=== PATIENT | female | born 1970 | race Caucasian/White ===

== ENCOUNTER 2024-04-27 01:32 | Observation (INO) | payer OTHER, SELFPAY ==
[2024-04-26 23:21] VITALS: BP 155/88
[2024-04-26 23:23] VITALS: BP 155/88
[2024-04-26 23:25] LABS: Glucose - Point of Care 107 mg/dl (70-99)
--- NOTE | 2024-04-26 23:28 | ED.CVA ---
History of Present Illness
General
Chief Complaint: CVA/TIA Symptoms
Source: patient and significant other
Exam Limitations: clinical condition
Time Seen by Provider: 04/26/24 23:21
Nursing documentation reviewed up to this point in time: agreed with
Onset of Stroke Symptoms
Onset of symptoms known: Yes
Date of onset of symptoms: 04/26/24
Time of onset of symptoms: 23:00
History of Present Illness
History of Present Illness:
This a pleasant 54-year-old female that presents with acute confusion approximately 30 minutes prior to arrival. Fianc� states that she has had difficulty with word finding. She has also had an unsteady gait. Patient reports having a severe
headache for the last day and a half. She awakened this morning without headache. She did not have any symptoms at all today. 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
Vital signs are stable. Patient not hypoxic
Nursing note reviewed. I agree with nursing documentation up to this point in time.
Home Meds and allergies reviewed.
NUMBER AND COMPLEXITY OF PROBLEMS ADDRESSED AT THE ENCOUNTER
� Chronic conditions affecting care:
� Acute Exacerbation and/or Progression of Chronic Illness:
� Differential Diagnosis includes:
AMOUNT AND/OR COMPLEXITY OF DATA TO BE REVIEWED AND ANALYZED
I performed an independent evaluation of the following and my interpretation is:
EKG: EKG shows normal sinus rhythm rate 79 with normal intervals, normal axis. No evidence of acute ischemia present. This is a normal EKG. When compared with previous EKG dated December 22, 2018, there is no obvious morphology
change noted.
CT:CT HEAD
Comparison: 12/22/2018.
IMPRESSION:
No acute intracranial hemorrhage, mass effect, or midline shift.
Solorio-white differentiation is intact. If indicated MRI would have increased sensitivity for acute infarct.
Ventricles and sulci are unremarkable.
Results faxed/electronically transmitted to the ER and radiology department at 11:44 PM ET.
X-rays:
Ultrasound:
Laboratory Studies:
Other:
Review of other/old records:
Clinical information was obtained by an independent historian:
Prescriptions/Medications Considered but not given:
Further testing considered but not performed:
RISK OF COMPLICATIONS AND/OR MORBIDITY OR MORTALITY OF PATIENT MANAGEMENT
Social determinants of health affecting care: Good Social Support
Discussion with other providers: Spoke with Dr. Rolando Manzano, neurology who is aware of the CT scan findings.
Escalation of care including admission/observation vs risk of discharge considered:
CRITICAL CARE NOTE:
Critical care statement: A total of 45 minutes of critical care time was provided for this patient. This time is separate from time utilized to perform the aforementioned documented procedures. Aggregate critical care time includes only time
during which I was engaged in work directly related to the patient's care, as described above, whether at the bedside or elsewhere in the Emergency Department.
Total Time (exclusive of procedures):45
Update:
Past History
Past History
ED Past Medical History: HTN, Other (Left ear melanoma removal) and Other (carotid artery dissection)
ED Past Surgical History: Gynecological (tubal ligation) and Other (melanoma L ear removal)
Social History
Tobacco: Non-smoker
Alcohol: None
Drug: None
Personal:
Living: with family
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
Family History
Family History: Other (mother TIA's)
Phy Exam
General Physical Exam
General Presentation: well appearing and no apparent distress
General Skin: warm and dry
General Habitus: normal
General Mental: alert
General Hydration: appears well hydrated
ENT Exam
ENT Exam: EOMI, pharynx normal, neck supple and normocephalic
Eye Exam
Eye Exam: PERRL, cornea clear and conjunctiva normal
Cardiovascular Exam
Cardiovascular Exam: regular rate/rhythm, no edema, no murmur and normal peripheral pulses
Pulmonary Exam
Pulmonary Exam: lungs clear, no respiratory distress, no rales, no crackles, no rhonchi, no stridor, no wheezing and no cough
Gastrointestinal Exam
Gastrointestinal Exam: normal bowel sounds, non tender, soft, no organomegaly, no pulsatile mass and non distended
Neurological Exam
Neurological Exam: alert, oriented x3, no motor deficits and speech normal
Musculoskeletal Exam
Musculoskeletal Exam: full ROM and no edema
Skin Exam
Skin Exam: normal color, warm/dry, no rash and no petechia
Psychiatric Exam
Psychiatric Exam: normal mood/affect
Scores
NIH Stroke Score
Level of Consciousness: 0 - Alert
LOC Questions: 0-Answers both correctly
LOC Commands: 0-Performs both correctly
Best Horizontal Gaze: 0-Normal
Visual Wong: 0=Normal, no visual loss
Facial Palsy: 0=Normal, symmetrical
Motor - Right Arm: 0=No drift 10 seconds
Motor - Left Arm: 0=No drift 10 seconds
Motor - Right Le-No drift 5 seconds
Motor - Left Le-No drift 5 seconds
Limb Ataxia: 0-Absent
Sensation: 0-Normal
Best Language: 0-No aphasia
Dysarthria: 0-Normal
Extinction and Inattention: 0-No abnormality
Total Score:: 0
Thrombolytic Contraindication
Inclusion and Exclusion criteria reviewed: Yes
Course
Orders/Labs/Results
Orders:
Orders
04/26/24 23:21
CT Head W/o Cont STROKE ALERT Urgent
Comment:
Reason For Exam: APhasia, hx of carotid dissection
CT Head/Neck Ang STROKE ALERT Urgent
Comment:
Reason For Exam: Aphasia, hx of carotid dissection
Bedside Glucose- Treatment ONCE
Cardiac Monitoring- Treatment ONCE
04/26/24 23:22
Electrocardiogram (*1) Stat
Reason for Study: Other
Other Reason for Exam: neuro symptoms
EKG- Treatment ONCE
04/26/24 23:23
Urinalysis Reflex To Culture Urgent
Date Specimen was Collected: 04/27/24
Time Specimen was Collected: 00:43
Urine Drug Abuse Screen Urgent
Date Specimen was Collected: 04/27/24
Time Specimen was Collected: 00:44
Test Result ONCE
04/26/24 23:49
Acetaminophen Urgent
Alcohol Urgent
Comprehensive Metabolic Panel Urgent
HCG, Serum Qualitative Screen Urgent
PTT Urgent
Prothrombin Time Urgent
Salicylate Urgent
04/26/24 23:50
Complete Blood Count/With Diff Urgent
Erythrocyte Sed Rate Urgent
04/26/24 23:54
Troponin I Urgent
04/27/24 00:36
Aspirin 325 mg PO NOW STA
Abnormal Lab Results
04/26/24 04/26/24 04/26/24
23:23 23:49 23:50
Absolute Lymphs (auto) 3.7 H 10^3/uL
(1.2-3.4)
Carbon Dioxide 31 H mmol/L
(22-30)
Salicylates < 1.0 L mg/dl
(2.0-20.0)
Acetaminophen < 10 L ug/ml
(10-30)
POC Glucose 107 H mg/dl
(70-99)
04/26/24 23:50
04/26/24 23:49
Vital Signs
Initial and Last Documented VS:
Initial Vital Signs
Temp Pulse Resp BP Pulse Ox
97.7 F 79 14 155/88 99
04/26/24 23:21 04/26/24 23:21 04/26/24 23:21 04/26/24 23:21 04/26/24 23:21
Last Documented Vital Signs
Temp Pulse Resp BP Pulse Ox
97.7 F 79 16 168/105 95
04/26/24 23:21 04/27/24 00:15 04/27/24 00:15 04/27/24 00:00 04/27/24 00:15
*Pulse Oximetry
Patient hypoxic: no
*Critical Care Note
Total Time (30-74mins, 75-104mins- exclusive of procedures): 45 (45)
Patient Management
Social determinants of health affecting care: Strong social support
Discussion with other providers: Taker Off Hemp Fiber and Radiologist (Spoke with Dr. Alex Anderson, radiology to determine CT scan of the head is negative.)
Update Note
Update Note:
04/26/2024 2346 PM: CT scan negative
ED Attending Note
-
Portions of this chart may have been created with voice recognition software.� Occasional wrong word or��sound alike� substitutions may have occurred due to the inherent limitations of voice recognition software.
Discharge Plan
Departure
Patient Disposition: Admit
Date of Disposition: 04/27/24
Time of Disposition: 00:59
Admit to: Telemetry
Presentation/result/management discussed w/ accepting MD/DO: Hospitalist
Discharge Problem:
Headache, Expressive aphasia
Prescriptions:
No Action
duloxetine 60 MG capsule,delayed release(DR/EC)
60 mg PO HS
Mounjaro 2.5 mg/0.5 mL pen injector
2.5 mg SC MO
cyanocobalamin (vitamin B-12) 1,000 mcg Tablet
1,000 mcg PO DAILYPRN PRN (Reason: supplement)
cholecalciferol (vitamin D3) 25 mcg (1,000 unit) Tablet
25 mcg PO DAILYPRN PRN (Reason: supplement)
Visbiome 112.5 billion cell Capsule
1 cap PO DAILY
Referrals:
Rema Santos PA [Family Provider] -
Interventions
Interventions:
*Risk Screen - Suicide Last Done: 04/26/24 23:45
*General Assessment Last Done: 04/26/24 23:45
*Neglect/Abuse Screening Last Done: 04/26/24 23:45
ED- Fall Risk Assessment Last Done: 04/26/24 23:46
*ED COVID-19 Vaccine History Last Done: 04/26/24 23:45
ED- Pulmonary Assessment Last Done: 04/26/24 23:46
ED- Neurological Assessment Last Done: 04/27/24 00:17
ED- Cardiac Assessment Last Done: 04/26/24 23:46
ED Swallowing Screen Last Done: 04/27/24 00:37
Discharge Date and Time
Print Language: MALAYSIAN
[2024-04-26 23:43] VITALS: BMI 28.4
[2024-04-27] VITALS (10 sets, daily range): BP systolic 109–168; BP diastolic 72–105; PULSE 74–85; O2SAT 98–99; BMI 27.3
[2024-04-27 00:03] LABS: % Basophils 1.3 % (0-2); % Eosinophils 2.3 % (0-6); % Immature Granulocytes 0.2 % (0-0.5); % Lymphocytes 43.5 % (20.5-51.1); % Monocytes 6.6 % (1.7-9.3); % Neutrophils 46.1 % (42.2-75.2); Absolute Basophils 0.1 10^3/uL (0-0.2); Absolute Eosinophils 0.2 10^3/uL (0-0.7); Absolute Lymphocytes 3.7 10^3/uL (1.2-3.4); Absolute Monocytes 0.6 10^3/uL (0.1-0.6); Hematocrit 42.5 % (37.0-47.0); Hemoglobin 14.8 g/dL (12.0-16.0); Mean Corp Hgb Conc. 34.8 g/dL (33.0-37.0); Mean Corpuscular Hgb 29.1 pg (27.0-31.0); Mean Corpuscular Volume 83.5 fL (81.0-99.0); Mean Platelet Volume 9.9 fL (7.4-10.4); Nucleated Red Blood Cells % 0 %; Platelet Count 288 10^3/uL (130-400); Red Blood Cell Count 5.09 10^6/uL (4.20-5.40); Red Cell Dist. Width 12.8 % (11.5-14.5); White Blood Cell Count 8.6 10^3/uL (4.8-10.8)
[2024-04-27 00:11] LABS: HCG, Serum Qualitative Screen Negative
[2024-04-27 00:14] LABS: ALT (SGPT) 23 U/L (0-35); AST (SGOT) 29 U/L (14-36); Acetaminophen < 10 ug/ml (10-30); Albumin 4.7 g/dl (3.5-5.0); Alkaline Phosphatase 82 U/L (38-126); Blood Urea Nitrogen 12 mg/dl (7-17); Carbon Dioxide 31 mmol/L (22-30); Chloride 100 mmol/L (98-107); Estimated Creatinine Clearance 79 ml/min; Glucose 96 mg/dl (70-99); Potassium 3.5 mmol/L (3.5-5.1); Salicylate < 1.0 mg/dl (2.0-20.0); Sodium 138 mmol/L (135-145); Total Bilirubin 0.4 mg/dl (0.2-1.3); Total Protein 7.3 g/dl (6.3-8.2); eGFR > 60.00
[2024-04-27 00:15] LABS: Alcohol None Detected
[2024-04-27 00:21] LABS: Erythrocyte Sed Rate 13 mm/hour (0-20)
[2024-04-27 00:27] LABS: Troponin I < 0.012 ng/ml
--- NOTE | 2024-04-27 00:38 | HPS.HSE ---
Family Physician
-
Family Physician: Rema Santos
Chief Complaint
-
word finding difficulty
History of Present Illness
Ms. Liliana Younger is a 54 yo woman wtih hx DM, depression, left ICA dissection, who presents to the ER with word finding difficulty.
Patient states 2 days ago she woke up with diffuse headache which is unusual for her. She drank caffeine and stayed hydrated, headache persisted. This morning headache was no longer present but she felt off all day with word finding difficulty.
She went to see her fiance and had acute confusion, unsure of how long she had been with him. She also had unsteady gait and was taken to the ER.
Currently patient states she feels back to her normal self. Denies current headache. She had no vision changes with symptoms, no focal weakness of arms or legs.
No recent fevers/chills. She had chest pain a few days ago and saw PCP, may have been from heavy lifting (recently moved). No nausea/vomiting/diarrhea. No abdominal pain. No LE swelling.
She has hx ICA dissection years ago and was on aspirin with follow up ultrasounds, no longer on daily aspirin.
Has hx HTN but lost weight and was able to come off of her medications. Last BP check in clinic was normal per patient.
Medical History
Past Medical History
Past Medical History: Reports Other ( DM, depression, left ICA dissection)
Past Surgical History: Reports Other
Social History
Tobacco: Non-smoker
Alcohol: None
Family History
Family History: Not pertinent
Allergies / Home Medications
Allergies reflects when Allergies were last updated in [facility].
Home Medications with original date entered in [facility]
Allergy/Medication List:
Allergies
Allergy/AdvReac Type Severity Reaction Status Date / Time
adhesive Allergy bandaids-red,puffy Verified 04/26/24 23:26
rash
dextromethorphan HBr Allergy puffy Verified 04/26/24 23:26
[From NyQuil] joints
with rash
doxylamine [From NyQuil] Allergy puffy Verified 04/26/24 23:26
joints
with rash
Fish Containing Products Allergy SALMON-ITCH Verified 04/26/24 23:26
ING,HIVES,N
AUSEA
pseudoephedrine HCl Allergy puffy Verified 04/26/24 23:26
[From NyQuil] joints
with rash
Home Medications
duloxetine 60 mg capsule,delayed release 60 mg PO HS 01/24/17
Lactobac no.2-Bifidobac no.1-S. thermo 112.5 billion cell capsule (Visbiome) 1 cap PO DAILY 04/26/24
cholecalciferol (vitamin D3) 25 mcg (1,000 unit) tablet 25 mcg PO DAILYPRN PRN supplement 04/26/24
cyanocobalamin (vitamin B-12) 1,000 mcg tablet 1,000 mcg PO DAILYPRN PRN supplement 04/26/24
tirzepatide 2.5 mg/0.5 mL subcutaneous pen injector (Mounjaro) 2.5 mg SC MO 04/26/24
Review of Systems
-
History Source: Patient
A 12 point ROS was completed and negative except as noted: Yes
Physical Exam
Vital Signs
Vital Signs
Temp Pulse Resp BP Pulse Ox
97.7 F 79 16 168/105 95
04/26/24 23:21 04/27/24 00:15 04/27/24 00:15 04/27/24 00:00 04/27/24 00:15
Physical Exam
General: No Apparent Distress
HEENT: PERRLA
Respiratory: Clear; No Wheezes
Cardiac: S1/S2 and Regular Rhythm
GI: Soft and Non Tender
Musculoskeletal: No Edema
Skin: Warm and Dry; No Rash
Neuro: AO x 3 and Other (PENNY, EOMI, no facial asymmetry, shoulder shrug WNL, no pronator drift, speech clear, 5/5 strength upper and lower extremities )
Psych: Calm
Laboratory Results
-
04/26/24 23:50
04/26/24 23:49
Laboratory Results
Total Bilirubin 0.4 mg/dl (0.2-1.3) 04/26/24 23:49
AST 29 U/L (14-36) 04/26/24 23:49
ALT 23 U/L (0-35) 04/26/24 23:49
Alkaline Phosphatase 82 U/L (38-126) 04/26/24 23:49
Troponin I < 0.012 ng/ml 04/26/24 23:54
Data Reviewed
-
Diagnostic Radiology: Report Reviewed by me
Lab Data: Labs Reviewed by me
Impression/Plan
-
Ms. Liliana Younger is a 54 yo woman with hx DM, depression, left ICA dissection, who presents to the ER with word finding difficulty.
Triage VS: T 97.7, P 79, RR 14, BP 155/88, SpO2 99%
LABS: WBC 8.6, Hg 14.8, PLT 288, Na 138, K+ 3.5, CO2 31, Cr 0.8, liver enzymes WNL, Trop < 0.012, HCG negative
CT Head without acute event; CTA Head/Neck without high grade stenosis, occlusion, dissection, aneurysm
MAR: asa 325
Expressive Aphasia
-symptoms now resolved. TIA versus complex migraine given association with SANCHEZ
-admit to observation
-s/p asa 325 in ER, continue asa 81mg PO QD
-start statin
-neuro checks
-MRI in AM
-formal neurology consult
-HgA1c, lipid panel
DM
-on Mounjaro at home
-ISS
DVT PPx SCD
FULL CODE
[2024-04-27] MEDS: ASPIRIN 325 MG PO (00:41)
[2024-04-27 00:52] LABS: APTT 30.6 Sec (23.4-35.0); INR 0.99; PT 13.1 Sec (11.4-14.6)
[2024-04-27 00:59] LABS: Urine Albumin Negative (Neg - Trace); Urine Bilirubin Negative (Negative); Urine Character Clear (Clear); Urine Color Yellow; Urine Glucose Negative (Negative); Urine Ketone Negative (Negative); Urine Leukocyte Negative (Negative); Urine Nitrite Negative (Negative); Urine Occult Blood Negative (Negative); Urine Specific Gravity 1.005 (<1.030); Urine Urobilinogen Negative (Neg - 1+)
[2024-04-27 01:15] LABS: Amphetamines Negative (Negative); Barbiturates Negative (Negative); Benzodiazepines Negative (Negative); Buprenorphine Negative (Negative); Cocaine Negative (Negative); Marijuana Negative (Negative); Methadone Negative (Negative); Methamphetamines Negative (Negative); Opiates Negative (Negative); Phencyclidine Negative (Negative); Tricyclic Antidepressants Negative (Negative)
--- NOTE | 2024-04-27 07:48 | W.PN.HOSP.TC ---
Addendum entered and electronically signed by Graeme Hall MD 04/27/24 14:46:
54 y/o female with word finding difficulty.She has hx ICA dissection years ago and was on aspirin with follow up ultrasounds, no longer on daily aspirin.
CTA-No evidence of large vessel occlusion. Symmetric cortical perfusion within both MCA territories.Mild narrowing of the supraclinoid portion of the right internal carotid artery, stable compared to multiple prior CTA examinations.
CVS: S1-S2 normal
Chest: CTA B/L
Abdomen: Soft, NT / Bowel sounds present
Extremities: No edema, normal pulses
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
#Expressive Aphasia
Symptoms now resolved. Likely migraine
ASA- DC as no CVA
MRI -No MRI evidence for acute infarct or intracranial hemorrhage.
Neuro eval appreciated
Feels this si Migraine
HgA1c pending, lipid panel noted
#Melanoma- History
#DVT PPx SCD
#FULL CODE
D/W Neuro
OK for discharge
Original Note:
Today's Communication/Plan
-
d/c home
use ibuprofen for mild headaches
sumitriptan for headaches with aura
fu with OP neurology.
Assessment / Plan
Assessment / Plan
#Expressive Aphasia
TIA versus complex migraine given association with SANCHEZ
- symptoms now resolved.
- Trops negative
- s/p asa 325 in ER, Stop asa 81 per neuro
- can stop statin per neuro
- Head CT, Head/neck CTA unremarkable
- MRI brain unremarkable
- Pending HbA1c, lipid panel
- UA, UDS unremarkable
- Neuro recs to trial ibu for SANCHEZ and 50mg sumatriptan prn for aura symptoms.
- advised to keep a log of headaches
- fu with neuro at least annually
#DM
- on Mounjaro at home
- ISS
# Left ICA
- periodic USG Q3m
- not on any OAC
DVT PPx SCD
FULL CODE
Anticipated Discharge: Today
Subjective/Interval History
-
Date of Service: April 27, 2024
Objective Data
-
Labs:
Laboratory Results
04/26/24 04/26/24
23:49 23:50
WBC 8.6
Hgb 14.8
Hct 42.5
Plt Count 288
PT 13.1
INR 0.99
APTT 30.6
Sodium 138
Potassium 3.5
Chloride 100
Carbon Dioxide 31 H
BUN 12
Creatinine 0.8
Glucose 96
Calcium 10.0
Total Bilirubin 0.4
AST 29
ALT 23
Alkaline Phosphatase 82
Vital Signs:
Vital Signs
Temp Pulse Resp BP Pulse Ox
98.2 F 86 16 150/90 97
04/27/24 06:46 04/27/24 06:46 04/27/24 06:46 04/27/24 06:46 04/27/24 06:46
Review of Systems
-
History Source: Patient
Constitutional: Denies Fever
Respiratory: Denies Cough
Cardiac: Denies Chest Pain
Abdomen/GI: Denies Abdominal Pain
Musculoskeletal: Denies Joint Pain
Neuro: Denies Headache
Physical Exam
-
General: Well Developed and Well Nourished
HEENT: Normocephalic and Atraumatic
Respiratory: Clear to Auscultation
Cardiac: Regular Rhythm
GI: Soft and Nontender
Musculoskeletal: No Edema
Skin: Warm and Dry
Neuro: Awake, Alert, Oriented, AO x 3, No Motor Deficits, Nonfocal/Grossly Intact and Central Nerve's Intact
Psych: Calm
Data Reviewed
-
CT Scan: Report Reviewed by me, Discussed with Physician and Discussed with Patient
MRI: Report Reviewed by me and Discussed with Physician
Labs: Labs Reviewed by me, Discussed with Physician and Discussed with Patient
[2024-04-27 08:02] LABS: Glucose - Point of Care 92 mg/dl (70-99)
--- NOTE | 2024-04-27 08:11 | CON.NEURO4 ---
Addendum entered and electronically signed by Jared Manzano MD 04/27/24 13:11:
I saw and evaluated the patient and reviewed note by NEWS PRODUCER Jackie Chiu, agree with findings with following comments:
54 year old right handed woman with visual aura migraine without headache, possible left intracranial carotid dissection in 2017, hypertension presenting to hospital due to confusion and word finding difficulty, the previous day had had significant
headache. Only recent stressor is a move recently, otherwise no sick contacts, fevers, URI, head/neck trauma. Tuesday woke up with a significant headache, toughed it out and drank a lot of water, may have had a mild headache on Tuesday.
Tuesday headache had no significant nausea/vomiting, photophobia or phonophobia. Did have some very mild speech abnormalities intermittently throughout the day on Tuesday but were so mild as to not be worrisome. evening headache
somewhat improved but her partner noted abnormal speech, pauses and poor responsiveness, he asked her if they should go to hospital and they presented to ED. Patient feeling well now with no headache, confusion or speech abnormalities.
Since around her teenager years she have had ocular/retinal migraines (these are incidences of visual aura without headache) where she will have usually right sided visual hemifield loss lasting around 10-20 minutes spontaneously resolving. Her
sister has rather severe migraines. Patient only once in her life had had a severe headache with photophobia making her need to lay day with complete inactivity.
Neurologic examination normal:
CTA head and neck no significant abnormalities, noted mild narrowing of left supraclinoid intracranial artery with no findings of dissection, no carotid stenosis or dissection.
MRI brain without contrast is normal.
Assessment: Presumed migraine aura manifesting with speech symptoms and mild confusion. Has a history of migraine visual aura without headache which is a clue, and patient had significant headache Tuesday is additional clue. Time course is not
consistent with TIA given mild fluctuating symptoms of speech abnormality on Tuesday. Time course also not consistent with seizure.
I have some doubts on whether or not she had a truly pathologic dissection of the left intracranial carotid artery causing symptoms, as that episode may again have been a migraine aura with motor/sensory symptoms and she simply may have an anatomic
variant of left carotid artery with some narrowing in that region. It seems that most of her migraine auras localize to the left side of the brain (left hemifield vision issue, aphasia/speech difficulties)
Recommendations:
-Can stop aspirin and atorvastatin
-If she gets significant headache like on Tuesday again I recommended she take 600 mg Ibuprofen and some caffeine as soon as possible, and if still with headache take 50 mg Sumatriptan which may help to prevent the aura symptoms. Not seeing
indication for everyday preventive medication. Also discussed may be helpful for keeping track of headaches and symptoms of aura with journal or migraine kvng on the phone
-No barriers to discharge from my POV
-Would have her continue to follow with neurology once a year seems sufficient given she has had these instances of neurologic issues over the years
Original Note:
Documented by User: Jackie Chiu NP 04/27/24 12:58
Consultation - Neurology 4
-
CONSULTING PHYSICIAN: Orquidea Manzano MD
REFERRING PHYSICIAN: Hospitalists/Dr. Bower
DICTATED BY: JEANA Gray
DATE/TIME OF REQUEST: 04/26/24
DATE/TIME OF CONSULTATION: 04/27/24
Reason for Consultation: Confusion
History of Present Illness:
This is a 54-year-old right-handed female with a PMH of stroke-like symptoms and possible dissection of the supraclinoid portion of the left internal carotid artery, ocular migraines, HTN, HLD, and melanoma who has presented to the hospital on
04/26/24 with report of headache, word finding difficulty, tongue numbness, and confusion. Patient has been previously evaluated by our Neurology service for headache and stroke-like symptoms once in 2017 and again in 2019.
From previous evaluation by Dr. Hugo on 01/24/17:
'The patient is a 46-year-old right-handed woman
who presented to this hospital's emergency department with new sudden onset of
the above-mentioned symptoms which began two days ago. The patient's
information was obtained after review of the patient's medical record,
discussion with the patient and with the emergency department providers.
The patient had been in her usual state of health until two days ago at which
time she was shopping. The patient reports that she was not having any change
in medical status in the past few days or surrounding this time. She did not
feel that she was under significant strain. She suddenly had onset, however,
of right arm and nearly simultaneously right leg heaviness. She also felt that
there was a tingling sensation in her tongue, although she is not able to
differentiate which side was involved. There was no other facial association.
The patient did report that she had difficulty with speech at that time. She
also felt that she was dragging her right arm and her right leg. After sitting
for approximately five minutes and eating chocolate, the patient did have a
significant sense of improvement in her well being and was able to stand again
and function without obvious difficulty. Unfortunately, the patient did not
seek medical attention for this event which lasted for approximately 20
minutes. The problem was followed immediately by a mild headache which
resolved after approximately 12 hours. The patient had no head pain yesterday,
although she again had recurrence of her head pain today which is at the top
of her head. The patient rarely experiences headaches and those headaches are
usually in the back of the head. This mild headache is described as a dull
sensation.'
She was followed as an outpatient by Dr. Hugo for about one year following her possible L ICA dissection and was maintained on aspirin 81mg and a statin for one year following that event. ASA/statin therapy was discontinued one year later when
repeat imaging was stable. Two days ago on 04/25/24 she reports waking up in the morning with an 8/10 headache that she describes as an entire head squeezing sensation that radiated down her neck. Her headache was not relieved by caffeine or
hydration, she did not taking anything else for the discomfort. She denies any photo/phonophobia and nausea. Throughout the day she reports feeling slightly unsteady on her feet and having mild word finding difficulty. She woke up yesterday
(04/26/24) and the headache had resolved. However, she reports having difficulty word finding/finishing her sentences. Last night around 2100 she was relaxing in bed when she suddenly became completely disoriented to time and situation. Her entire
tongue then started to feel numb and she felt like she could only speak at a low volume compared to baseline. 20 minutes later en route to the ER, her tongue numbness resolved. Her disorientation lasted slightly less than [address] head and CTA
head/neck were obtained on arrival in the ER and are negative for any acute abnormalities. NIHSS was 0. She was not a candidate for TNK/IAT due to NIHSS 0, unclear diagnosis. Today (04/27/24), patient reports feeling completely at her baseline. She
denies any headache, dizziness, vision changes, speech/swallow difficulty, nausea, numbness, weakness, chest pain, palpitations, and shortness of breath. She feels like this event was somewhat similar to 2017's ICA dissection symptoms.
Coincidentally, prior to 2017's event and yesterday's event, she had just gotten her hair done at a salon and had her neck hyperextended for some time. She has been intolerant to rosuvastatin and atorvastatin in the past due to muscle cramps.
She reports a history of ocular migraines starting at age 15, she has had about 12 in her lifetime. Her ocular migraines are associated with bilateral eye right visual field wavy distortion and a fuzzy/pressure sensation on the top of her head.
These typically resolve in less than 15 minutes but she has to rest completely to have it pass. She does not one severe headache in the past associated with photo/phonophobia and nausea.
Past Medical History: Stroke-like symptoms and possible dissection of the supraclinoid portion of the left internal carotid artery, HTN, HLD, ocular migraines, osteoarthritis, depression, anxiety, melanoma, positive ANDREW
Surgical History: Tubal ligation, DAVID/BSO, Left ear resection for malignant melanoma
Family History: Sister- migraines and seizures.
Social History: Denies tobacco and illicit drug use. Rare alcohol.
Allergies: [place], NyQuil, adhesive.
Home Medications: See below.
Review of Symptoms:
Patient denies any fever, headache, chest pain, shortness of breath, GI or symptoms.
�Per the HPI.�All systems are reviewed negative except above.
Physical Exam:
The patient is afebrile, abdomen is nondistended, breathing is unlabored, skin is warm and dry, no edema.
NIH Stroke Scale:
I performed the NIH stroke scale on the patient on 04/27/24 at 0830. The patient scored 0 points on the NIH stroke scale assessment, which were assigned as follows: See below.
Neurologic Examination:
The patient is awake, alert and oriented x 3. She is able to follow commands and answer questions appropriately. There is no aphasia or dysarthria. On cranial nerve assessment, pupils are 3 mm bilateral, round and reactive to light and
accommodation. Visual wong are full but patient reports blurring in bilateral LLQ. Extraocular movements are intact. Facial sensations are intact and bilaterally symmetrical, there is no facial asymmetry. Hearing is intact bilaterally to normal
conversation volume. Tongue palate and uvula are midline. Sternocleidomastoid strengths are full bilaterally. Motor strengths are 5/5 bilateral upper and lower extremities on medical research [place] scale. There is no drift or involuntary movement
noted. Deep tendon reflexes are 2+ bilateral upper and lower extremities and Babinski is absent bilaterally. There was no extinction noted on double simultaneous stimulation. Coordination is intact by finger to nose bilaterally.
Lab Results: See below.
Neuro Imaging:
1. CT Head 04/26/24: No intracranial hemorrhage. No transcortical infarct is appreciated. No significant change compared to prior study.
2. CTA head/neck 04/26/24: No evidence of large vessel occlusion. Symmetric cortical perfusion within both MCA territories. Mild narrowing of the supraclinoid portion of the right internal carotid artery, stable compared to multiple prior CTA
examinations.
Differentials for the patient's presentation include:
1. Migraine with aura likely producing headache, confusion, tongue numbness, and speech difficulty.
2. Low concern for stroke but possible.
3. Duration of symptoms too long to be supportive of TIA or seizure.
4. CTA negative for dissection.
IV Tenecteplase/IAT candidacy: She was not a candidate for TNK/IAT due to NIHSS 0, unclear diagnosis.
Recommendations:
-MRI brain noncontrast pending.
-Goal normotension.
-TTE pending.
-NIHSS and neurological checks per unit guidelines.
-If MRI brain is negative, will discontinue aspirin and statin therapy.
-PT/OT/ST evaluations.
-DVT prophylaxis.
-Will follow pending results.
-Patient should follow-up with Neurology as an outpatient at least yearly, may see the NEWS PRODUCER or one of the physicians.
Discussed patient care with: Dr. Manzano, the patient
Vital Signs and Labs
-
Vital Signs and Labs:
Vital Signs
Temp Pulse Resp BP Pulse Ox
98.2 F 72 16 127/83 100
04/27/24 08:19 04/27/24 08:19 04/27/24 08:19 04/27/24 08:19 04/27/24 08:19
Lab Results
04/26/24 23:50
04/26/24 23:49
PT 13.1 Sec (11.4-14.6) 04/26/24 23:49
INR 0.99 04/26/24 23:49
APTT 30.6 Sec (23.4-35.0) 04/26/24 23:49
Sodium 138 mmol/L (135-145) 04/26/24 23:49
Potassium 3.5 mmol/L (3.5-5.1) 04/26/24 23:49
BUN 12 mg/dl (7-17) 04/26/24 23:49
Glucose 96 mg/dl (70-99) 04/26/24 23:49
Calcium 10.0 mg/dl (8.4-10.2) 04/26/24 23:49
LDL Cholesterol, Calc 142 mg/dl 04/27/24 10:00
Vitamin B12 461 pg/ml (821-461) 04/27/24 10:00
Ur Buprenorphine Negative (Negative) 04/27/24 00:48
Medications
-
Active Medications
Generic Name Dose Route Start Last Admin
Trade Name Freq PRN Reason Stop Dose Admin
Acetaminophen 650 mg 04/27/24 02:28
Acetaminophen 650 Mg Rectal Suppository RECTAL 05/25/24 02:27
Q4HPRN PRN
SANCHEZ, mild pain, or temp >100.4F
Acetaminophen 650 mg 04/27/24 02:28
Acetaminophen 325 Mg Tablet PO 05/25/24 02:27
Q4HPRN PRN
SANCHEZ, mild pain, or temp >100.4F
Aspirin 81 mg 04/27/24 08:00 04/27/24 08:16
Aspirin 81 Mg Chewable Tablet PO 05/25/24 07:59 Not Given
DAILY JOSSELYN
Atorvastatin Calcium 40 mg 04/27/24 18:00
Atorvastatin (Lipitor) 40 Mg Tablet PO 05/25/24 17:59
QPM JOSSELYN
Dextrose 12.5 grams 04/27/24 02:28
Dextrose 50% (0.5 Grams/Ml) 50 Ml Syringe IV 05/25/24 02:27
[id number] PRN
hypoglycemia
Protocol
Duloxetine HCl 60 mg 04/27/24 22:00
Duloxetine Delayed Release 60 Mg Capsule PO 05/25/24 21:59
HS JOSSELYN
Glucagon 1 mg 04/27/24 02:28
Glucagon 1 Mg Vial IM 05/25/24 02:27
PRN PRN
hypoglycemia
Protocol
Insulin Aspart 0 units 04/27/24 07:30 04/27/24 12:20
Insulin Aspart Low Resistance 300 Units/3 Ml Pen.Injctr SC 05/25/24 07:29 Not Given
AC JOSSELYN
Protocol
Sodium Chloride 0 flush 04/27/24 02:00
Sodium Chloride 0.9% (Flush) Syringe IV 05/25/24 01:59
PER PROTOCOL JOSSELYN
Home Medications
�Medication �Instructions �Recorded
duloxetine 60 mg capsule,delayed 60 mg PO HS 01/24/17
release
Lactobac no.2-Bifidobac no.1-S. 1 cap PO DAILY 04/26/24
thermo 112.5 billion cell capsule
(Visbiome)
cholecalciferol (vitamin D3) 25 25 mcg PO DAILYPRN PRN supplement 04/26/24
mcg (1,000 unit) tablet
cyanocobalamin (vitamin B-12) 1,000 mcg PO DAILYPRN PRN 04/26/24
1,000 mcg tablet supplement
tirzepatide 2.5 mg/0.5 mL 2.5 mg SC MO 04/26/24
subcutaneous pen injector
(Mounjaro)
NIH Stroke Score
Subsequent NIH Scale
Date of Subsequent NIH Scale: 04/27/24
Time of Subsequent NIH Scale: 08:30
NIH Stroke Score
Level of Consciousness: 0 - Alert
LOC Questions: 0-Answers both correctly
LOC Commands: 0-Performs both correctly
Best Horizontal Gaze: 0-Normal
Visual Wong: 0=Normal, no visual loss
Facial Palsy: 0=Normal, symmetrical
Motor - Right Arm: 0=No drift 10 seconds
Motor - Left Arm: 0=No drift 10 seconds
Motor - Right Le-No drift 5 seconds
Motor - Left Le-No drift 5 seconds
Limb Ataxia: 0-Absent
Sensation: 0-Normal
Best Language: 0-No aphasia
Dysarthria: 0-Normal
Extinction and Inattention: 0-No abnormality
Total Score:: 0
Modified José Miguel (mRS) Score
Modified José Miguel Scale (mRS): No symptoms
Score: 0

Documented by User: Jared Manzano MD 04/27/24 13:02
NIH Stroke Score
NIH Stroke Score
Total Score:: 0
Modified José Miguel (mRS) Score
Score: 0
--- NOTE | 2024-04-27 10:44 | PTOTSP ---
PATIENT MOBILIZING INDEPENDENTLY ON LEVEL SURFACES WELL ELEVATIONS. PATIENT REPORTING THAT SHE FEELS '100%' BACK TO HER BASELINE. IN LIGHT OF THE ABOVE, WILL DISCHARGE FROM ACUTE CARE SKILLED P.T. AT THIS TIME. IF ANY CHANGES SHOULD OCCUR
PLEASE FEEL FREE TO RECONSULT.
[2024-04-27 11:41] LABS: TSH Reflex To Free T4 1.34 uIU/ml (0.47-4.68)
[2024-04-27 11:45] LABS: Ferritin 28.5 ng/ml (11.1-264.0)
[2024-04-27 12:10] LABS: HDL Cholesterol 74 mg/dl; Triglyceride 106 mg/dl (10-149); Very Low Density Lipoprotein 21 mg/dl (0-30)
[2024-04-27 12:12] LABS: Glucose - Point of Care 77 mg/dl (70-99)
[2024-04-27 12:16] LABS: Folate 6.5 ng/ml (2.76-20); Vitamin B12 461 pg/ml (239-931)
[2024-04-27 12:19] LABS: LDL Cholesterol, Calculated 142 mg/dl; Total Cholesterol 237 mg/dl (50-199)
--- NOTE | 2024-04-27 12:44 | CM ---
Liliana came to ED due to word finding difficulties which were noticed by her fiance.
CM met with Liliana to complete IA. 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
She lives in a first floor condo; adult daughter lives there as well.
PT and OT consults reviewed; ST pending.
Anticipate discharge to home with no needs.
CM to follow for discharge planning based on hospital course.
--- NOTE | 2024-04-27 14:18 | W.DCSUMMARY ---
Discharge Summary
Discharge Data
Date of Admission: 04/26/24
Date of Discharge: 04/27/24
-
Pending Results: Yes
Additional Pending Results:
HbA1c
Hospital Course
Discharging Physician : Kamar Bowen MD ; Graeme Hall MD
Disposition : Home
Primary care physician : Rema Santos
Principal Discharge diagnosis : Expressive aphasia
Chronic Discharge diagnosis : Migraine, DM, Depression, left ICA dissection
Hospital Course : 54-year-old female presented with acute confusion/difficulty finding words for 30 minutes prior to arrival. She reported unsteady gait and headache for the last 2 days. She was evaluated for CVA, however her NIH score was 0. CT
head, head/neck CTA were obtained and the findings were unremarkable. Her symptoms resolved quickly. She was admitted for further evaluation. Brain MRI showed was unremarkable. Neurology was on board, initially she was started on aspirin and
atorvastatin but eventually after the further workup it was discontinued. She was advised to use ibuprofen 600mg and some caffeine as soon as she experience severe headache and if still with headache take 50 mg Sumatriptan which may help to prevent
the aura symptoms. Discharged with instructions to Follow with neurology once a year seems sufficient given she has had these instances of neurologic issues over the years. Neuro exam was intact throughout her stay at the hospital.
Important imaging findings : Head CT:
FINDINGS:
No intra or extra axial hemorrhage is appreciated. No midline shift, edema, or abnormal mass effect.
The ventricles and sulci are of normal caliber.
Wolff and white matter are of normal attenuation.
No areas of transcortical infarction are appreciated.
No displaced skull fracture is seen.
The mastoid air cells and visualized paranasal sinuses are normally aerated.
IMPRESSION:
1. No intracranial hemorrhage.
2. No transcortical infarct is appreciated.
3. No significant change compared to prior study.
Head/neck CTA:
FINDINGS:
The visualized aortic arch is of normal caliber. Aortic arch branches are also of normal caliber.
The right common carotid artery is of normal caliber. There is tortuosity of the distal cervical portion of the right internal carotid artery. Mild narrowing of the supraclinoid portion of the right internal carotid artery. No arterial occlusion is
appreciated.
The right middle cerebral artery is within normal limits. There is symmetric cortical perfusion within the MCA territory.
The left common carotid artery is of normal caliber. The left internal carotid artery is also of normal caliber, without evidence of significant carotid stenosis, or carotid dissection. Distal cervical left internal carotid is tortuous.
The left middle cerebral artery is within normal limits. There is symmetric cortical perfusion within the MCA territory.
Both vertebral arteries are of normal caliber. No evidence of vertebral arterial dissection.
The basilar artery is of normal caliber. Both posterior cerebral arteries are of normal caliber.
The thyroid gland is of normal appearance. No pathologic lymphadenopathy is seen within the neck. No large soft tissue masses are appreciated.
Visualized salivary glands are within normal limits.
No focal aggressive osseous lesions are seen.
The visualized lung apices are normally aerated.
IMPRESSION:
1. No evidence of large vessel occlusion. Symmetric cortical perfusion within both MCA territories.
2. Mild narrowing of the supraclinoid portion of the right internal carotid artery, stable compared to multiple prior CTA examinations
Brain MRI:
FINDINGS:
There is no MRI evidence for restricted diffusion to suggest acute infarction. There is no evidence for subacute or chronic infarct. There is no vasogenic or cytotoxic edema. There is no focal encephalomalacia. There is no MRI evidence for white
matter disease in the brain. 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
The ventricles are midline without evidence for hydrocephalus. There is no midline shift or herniation. There is no evidence for acute or chronic intracranial hemorrhage. There are no extra-axial fluid collections. There is mild symmetric bilateral
frontal lobe volume loss.
The orbits appear normal. There is moderate mucosal thickening in the right inferior nasal turbinates. There is minimal mucosal thickening in the inferior left maxillary sinus antrum. There is a small amount of fluid in the left mastoid air cells.
The right mastoid air cells are clear.
There is moderate left-sided facet joint arthrosis at C3/C4 and moderate right-sided facet joint arthrosis at C4/C5.
IMPRESSION:
1. No MRI evidence for acute infarct or intracranial hemorrhage.
2. Mild bilateral frontal lobe volume loss.
Discharge Plan
-
Patient Disposition: Home (Routine Discharge)
Discharge Diagnosis/Procedures: Expressive Aphasia, migraine, DM, Depression, Chronic left ICA dissection
Condition: Good
Diet: No restrictions
Activity: No restrictions
Driving Restrictions: As prior to admission
Bathing Restrictions: None
Activity Restrictions/Additional Instructions:
keeping track of headaches and symptoms of aura with journal or migraine kvng on the phone. Result of HbA1C Pending, see PCP for results.
Referrals:
Jared Manzano MD [Active] - (Annually)
Rema Santos PA [Family Provider] - in less than 1 week
Additional Discharge Medication Instructions: For headaches take 600 mg Ibuprofen and some caffeine as soon as possible, and if still with headache take 50 mg Sumatriptan which may help to prevent the aura symptoms.
Prescriptions:
New
sumatriptan succinate [Imitrex] 50 mg tablet
50 mg PO ONCE MDD 2 tablets(100mg) PRN (Reason: migraine headache) Qty: 30 0RF
Rx Instructions:
orally once;
Continued
duloxetine 60 MG capsule,delayed release(DR/EC)
60 mg PO HS
Mounjaro 2.5 mg/0.5 mL pen injector
2.5 mg SC MO
cyanocobalamin (vitamin B-12) 1,000 mcg Tablet
1,000 mcg PO DAILYPRN PRN (Reason: supplement)
cholecalciferol (vitamin D3) 25 mcg (1,000 unit) Tablet
25 mcg PO DAILYPRN PRN (Reason: supplement)
Visbiome 112.5 billion cell Capsule
1 cap PO DAILY
Discharge Orders:
Discharge Patient (As Directed); Ordered 04/27/24
Ordered By: Kamar Campbell
Discharge Date and Time
Print Language: NAURUAN
[2024-04-28 11:16] LABS: Glycohemoglobin (HgbA1c) 5.3 % (4.0-5.6)
== END 2024-04-27 16:49 | disposition home or self-care (01) ==
LOC: 4 EAST ACU 01:32
PROVIDERS: ADMITTING PHYSICIAN Student in an Organized Health Care Education/Training Program; ATTENDING PHYSICIAN Hospitalist; CONSULT PHYSICIAN Student in an Organized Health Care Education/Training Program; EMERGENCY PHYSICIAN Student in an Organized Health Care Education/Training Program; FAMILY PHYSICIAN Physician Assistant Medical
DX: R47.01 Aphasia (principal); R51.9 Headache, unspecified; R41.0 Disorientation, unspecified; R26.81 Unsteadiness on feet; I10 Essential (primary) hypertension; E11.9 Type 2 diabetes mellitus without complications; F32.A Depression, unspecified; Z85.820 Personal history of malignant melanoma of skin; Z79.85 Long-term (current) use of injectable non-insulin antidiabetic drugs; Z91.013 Allergy to seafood; Z88.8 Allergy status to other drugs, medicaments and biological substances; Z91.048 Other nonmedicinal substance allergy status
CPT/HCPCS: 70450; 70496; 70498; 70551; 80053; 80061; 80143; 80179; 80306; 81003; 82077; 82607; 82728; 82746; 82962; 83036; 84443; 84484; 84703; 85025; 85610; 85652; 85730; 93005; 93306; 97162; 97166; 99291; G0378; Q9967

== ENCOUNTER → 2025-05-29 18:52 | Outpatient (REF) | payer OTHER, SELFPAY | LOC: WDC 18:52 | PROVIDERS: ATTENDING PHYSICIAN Family Medicine; FAMILY PHYSICIAN Physician Assistant Medical | DX: Z12.31 Encounter for screening mammogram for malignant neoplasm of breast (principal) | CPT/HCPCS: 77063; 77067 ==